=== PATIENT | female | born 1955 | race Caucasian/White ===

== ENCOUNTER → 2020-11-01 | Outpatient (CLI) | payer MEDICARE, OTHER ==
[~2020-11-01] MED LIST: LASIX20 MG PO
== END ==
LOC: EXRD 11:09
DX: M80.88XA Other osteoporosis with current pathological fracture, vertebra(e), initial encounter for fracture (principal); F17.200 Nicotine dependence, unspecified, uncomplicated; M85.852 Other specified disorders of bone density and structure, left thigh; M85.88 Other specified disorders of bone density and structure, other site; Z72.89 Other problems related to lifestyle
CPT/HCPCS: 77080